=== PATIENT | male | born 1990 | race American Indian/Alaskan Native ===

== ENCOUNTER 2019-11-28 22:27 | Emergency (ER) | payer SELFPAY ==
[2019-11-29] MEDS ORDERED: KETOROLAC 60 MG/2 ML INJ IM ONE (03:31)
[2019-11-29] MEDS ORDERED: ONDANSETRON 4 MG ODT TAB PO ONE (03:32)
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
[2019-11-29 03:55] VITALS: BP 118/84
== END 2019-11-29 04:25 | disposition home or self-care (01) ==
LOC: ED 22:27
DX: J01.80 Other acute sinusitis (principal); B96.89 Other specified bacterial agents as the cause of diseases classified elsewhere; M54.42 Lumbago with sciatica, left side; M54.41 Lumbago with sciatica, right side
CPT/HCPCS: 96372; 99282; J1885; Q0162